=== PATIENT | male | born 1960 | race Caucasian/White ===

== ENCOUNTER 2016-08-02 19:44 | Inpatient (IN) | payer OTHER ==
[2016-08-02 20:55] VITALS: BMI 28.6
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
[2016-08-02] MEDS ORDERED: MAG HYDROX/AL HYDROX/SIMETH 30 ML UNIT-DOSE CUP PO PRN (21:37)
[2016-08-02] MEDS ORDERED: chlordiazePOXIDE HCL 25 MG CAPSULE PO PRN (21:37)
[2016-08-02] MEDS ORDERED: ACETAMINOPHEN 325 MG TABLET (FP) PO PRN (21:37)
[2016-08-02] MEDS ORDERED: guaiFENesin/D-METHORPHAN HB 10 ML UNIT-DOSE CUPS PO PRN (21:37)
[2016-08-02] MEDS ORDERED: P-EPHED 60MG/TRIPROLIDI 2.5MG TABLET PO PRN (21:37)
[2016-08-02] MEDS ORDERED: IBUPROFEN 400 MG TABLET (FP) PO PRN (21:37)
[2016-08-02] MEDS ORDERED: LOPERAMIDE HCL 2 MG CAPSULE PO PRN (21:37)
[2016-08-02] MEDS ORDERED: NICOTINE POLACRILEX 2 MG GUM BC PRN (21:37)
[2016-08-02] MEDS ORDERED: MAGNESIUM HYDROX 2400MG/30ML ORAL SUSPENSION 30 ML CUP PO PRN (21:37)
[2016-08-02] MEDS ORDERED: MENTHOL/PHENOL 1 EACH UD MM PRN (21:37)
[2016-08-02] MEDS ORDERED: MAGNESIUM CITRATE 300 ML BOTTLE PO PRN (21:37)
[2016-08-02] MEDS ORDERED: diphenhydrAMINE HCL 50 MG CAPSULE PO PRN (21:37)
[2016-08-02] MEDS: chlordiazePOXIDE HCL 25 MG CAPSULE PO SCH (22:54)
[2016-08-02] MEDS: THIAMINE HCL 100 MG TABLET (FP) PO SCH (22:55)
[2016-08-02] MEDS: ATORVASTATIN CA 20 MG TABLET (FP) PO SCH (22:55)
[2016-08-02] MEDS: amLODIPine BESYLATE 10 MG TABLET (FP) PO SCH (22:55)
[2016-08-02 23:01] LABS: URINE APPEARANCE CLEAR; URINE BILIRUBIN NEGATIVE (NEGATIVE); URINE COLOR YELLOW; URINE GLUCOSE (UA) NEGATIVE (NEGATIVE); URINE KETONE NEGATIVE (NEGATIVE); URINE LEUK ESTERASE NEGATIVE (NEGATIVE); URINE NITRITE NEGATIVE (NEGATIVE); URINE UROBILINOGEN NEGATIVE E.U./dl (0.2-1.0)
[2016-08-02 23:10] LABS: URINE BLOOD 1+ (NEGATIVE); URINE PROTEIN 1+ (NEGATIVE)
[2016-08-02 23:20] LABS: URINE MUCUS RARE; URINE RBC 7 /hpf (0-3); URINE WBC 1 /hpf (3-5)
[2016-08-03] MEDS: chlordiazePOXIDE HCL 25 MG CAPSULE PO SCH ×4 (05:37→22:22)
[2016-08-03] MEDS: METHADONE HCL 10 MG TABLET PO SCH (09:24)
[2016-08-03] MEDS: amLODIPine BESYLATE 10 MG TABLET (FP) PO SCH (09:25)
[2016-08-03] MEDS: HYDROCHLOROTHIAZIDE 25 MG TABLET (FP) PO SCH (09:25)
[2016-08-03] MEDS: PRENATAL VITAMINS W/ FOLIC ACID TABLET (FP) PO SCH (09:25)
[2016-08-03 10:27] LABS: MCH 33.3 pg (25.7-33.7); MCHC 33.5 g/dl (32.0-35.9); MEAN CELL VOLUME 99.5 fl (80-96); MEAN PLT VOLUME 10.4 fl (7.5-11.1); PLATELET COUNT 125 K/MM3 (134-434); RDW 13.9 % (11.9-15.9); WHITE BLOOD COUNT 6.6 K/mm3 (4.0-10.0)
[2016-08-03] MEDS: CALCIUM 250MG/VIT-D 125 UNITS 1 COMBO TABLET PO SCH (10:39)
[2016-08-03] MEDS: NICOTINE 14 MG/24 HOURS TOPICAL PATCH TD SCH (10:40)
[2016-08-03 10:42] LABS: ALBUMIN 3.8 g/dl (3.4-5.0); ANION GAP 7 (8-16); CALCIUM 8.6 mg/dL (8.5-10.1); CO2 35 mmol/L (21-32); GLUCOSE,RANDOM 80 mg/dL (74-106)
[2016-08-03 10:47] LABS: ALK PHOS 150 U/L (45-117); BILIRUBIN,TOTAL 1.2 mg/dL (0.2-1.0); CREATININE 0.7 mg/dL (0.7-1.3); SGOT/AST 93 U/L (15-37); SGPT/ALT 109 U/L (12-78); TOT PROT 7.1 g/dl (6.4-8.2)
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
[2016-08-03] MEDS: LISINOPRIL 20 MG TABLET (FP) PO SCH (13:45)
--- NOTE | 2016-08-03 14:36 | PN ---
S CIWA - CIWA Score Nausea/Vomitin Muscle Tremors: 4-Moderate,w/Arms Extend Anxiety: 4-Mod. Anxious/Guarded Agitation: 4-Moderately Restless Paroxysmal Sweats: 3 Orientation: 4Disoriented Place/Person Tacttile Disturbances: 2-Mild Itch/Numbness/Burn Auditory Disturbances: 0-None Visual Disturbances: 0-None Headache: 0-None Present CIWA-Ar Total Score: 23 S Progress Note (SOAP) Subjective: Tremors, Sweating, Runny Nose. Objective: PT. A & O X 1 (DISORIENTED ABOUT DAY/DATE AND ABOUT LOCATION). PT. OBSERVED AMBULATING ON UNIT. 08/03/16 14:34 Vital Signs Temperature 97.1 F L 08/03/16 14:20 Pulse Rate 93 H 08/03/16 14:20 Respiratory Rate 20 08/03/16 14:20 Blood Pressure 135/72 08/03/16 14:20 O2 Sat by Pulse Oximetry (%) Laboratory Last Values WBC 6.6 K/mm3 (4.0-10.0) 08/03/16 07:30 RBC 4.39 M/mm3 (4.00-5.60) 08/03/16 07:30 Hgb 14.6 GM/dL (11.7-16.9) 08/03/16 07:30 Hct 43.7 % (35.4-49) 08/03/16 07:30 MCV 99.5 fl (80-96) H 08/03/16 07:30 MCHC 33.5 g/dl (32.0-35.9) 08/03/16 07:30 RDW 13.9 % (11.9-15.9) 08/03/16 07:30 Plt Count 125 K/MM3 (134-434) L 08/03/16 07:30 MPV 10.4 fl (7.5-11.1) 08/03/16 07:30 Sodium 141 mmol/L (136-145) 08/03/16 07:30 Potassium 3.6 mmol/L (3.5-5.1) 08/03/16 07:30 Chloride 99 mmol/L (98-107) 08/03/16 07:30 Carbon Dioxide 35 mmol/L (21-32) H 08/03/16 07:30 Anion Gap 7 (8-16) L 08/03/16 07:30 BUN 14 mg/dL (7-18) 08/03/16 07:30 Creatinine 0.7 mg/dL (0.7-1.3) 08/03/16 07:30 Creat Clearance w eGFR > 60 (>60) 08/03/16 07:30 Random Glucose 80 mg/dL (74-106) 08/03/16 07:30 Calcium 8.6 mg/dL (8.5-10.1) 08/03/16 07:30 Total Bilirubin 1.2 mg/dL (0.2-1.0) H 08/03/16 07:30 AST 93 U/L (15-37) H 08/03/16 07:30 ALT 109 U/L (12-78) H 08/03/16 07:30 Alkaline Phosphatase 150 U/L (45-117) H 08/03/16 07:30 Total Protein 7.1 g/dl (6.4-8.2) 08/03/16 07:30 Albumin 3.8 g/dl (3.4-5.0) 08/03/16 07:30 Urine Color Yellow 08/02/16 21:51 Urine Appearance Clear 08/02/16 21:51 Urine pH 7.0 (5.0-8.0) 08/02/16 21:51 Ur Specific [place] 1.016 (1.001-1.035) 08/02/16 21:51 Urine Protein 1+ (NEGATIVE) H 08/02/16 21:51 Urine Glucose (UA) Negative (NEGATIVE) 08/02/16 21:51 Urine Ketones Negative (NEGATIVE) 08/02/16 21:51 Urine Blood 1+ (NEGATIVE) H 08/02/16 21:51 Urine Nitrite Negative (NEGATIVE) 08/02/16 21:51 Urine Bilirubin Negative (NEGATIVE) 08/02/16 21:51 Urine Urobilinogen Negative E.U./dl (0.2-1.0) 08/02/16 21:51 Ur Leukocyte Esterase Negative (NEGATIVE) 08/02/16 21:51 Urine RBC 7 /hpf (0-3) 08/02/16 21:51 Urine WBC 1 /hpf (3-5) 08/02/16 21:51 Urine Mucus Rare 08/02/16 21:51 RPR Titer Nonreactive (NONREACTIVE) 08/03/16 07:30 LABS NOTED. Assessment: 08/03/16 14:36 WITHDRAWAL SYMPTOMS. Plan: CONTINUE DETOX. PT. ADVISED TO FOLLOW-UP WITH TAX AUDITOR / REHAB MEDICAL PROVIDER AFTER DISCHARGE FROM DETOX FOR GENERAL MEDICAL ASSESSMENT AND FOR ABNORMAL LAB VALUES.
[2016-08-03] MEDS: ATORVASTATIN CA 20 MG TABLET (FP) PO SCH (22:22)
[2016-08-03] MEDS: THIAMINE HCL 100 MG TABLET (FP) PO SCH (22:22)
[2016-08-04] MEDS: METHADONE HCL 10 MG TABLET PO SCH (05:29)
[2016-08-04] MEDS: chlordiazePOXIDE HCL 25 MG CAPSULE PO SCH ×3 (05:30→17:57)
[2016-08-04] MEDS: CALCIUM 250MG/VIT-D 125 UNITS 1 COMBO TABLET PO SCH (10:20)
[2016-08-04] MEDS: NICOTINE 14 MG/24 HOURS TOPICAL PATCH TD SCH (10:20)
[2016-08-04] MEDS: amLODIPine BESYLATE 10 MG TABLET (FP) PO SCH (10:20)
[2016-08-04] MEDS: HYDROCHLOROTHIAZIDE 25 MG TABLET (FP) PO SCH (10:20)
[2016-08-04] MEDS: LISINOPRIL 20 MG TABLET (FP) PO SCH (10:20)
[2016-08-04] MEDS: PRENATAL VITAMINS W/ FOLIC ACID TABLET (FP) PO SCH (10:20)
--- NOTE | 2016-08-04 14:28 | PN ---
[facility] CIWA - CIWA Score Nausea/Vomitin-Mild Nausea/No Vomiting Muscle Tremors: 4-Moderate,w/Arms Extend Anxiety: 4-Mod. Anxious/Guarded Agitation: 4-Moderately Restless Paroxysmal Sweats: 3 Orientation: 0-Oriented Tacttile Disturbances: 0-None Auditory Disturbances: 2-Mild Harshness/Frighten Visual Disturbances: 1-Very Mild Sensitivity Headache: 0-None Present CIWA-Ar Total Score: 19 S Progress Note (SOAP) Subjective: Fatigue, Tremors, Anxious. Objective: PT. A & O X 3, OBSERVED AMBULATING ON UNIT. 08/04/16 14:26 Vital Signs Temperature 97.5 F L 08/04/16 13:10 Pulse Rate 61 08/04/16 13:10 Respiratory Rate 18 08/04/16 13:10 Blood Pressure 147/83 08/04/16 13:10 O2 Sat by Pulse Oximetry (%) Laboratory Last Values WBC 6.6 K/mm3 (4.0-10.0) 08/03/16 07:30 RBC 4.39 M/mm3 (4.00-5.60) 08/03/16 07:30 Hgb 14.6 GM/dL (11.7-16.9) 08/03/16 07:30 Hct 43.7 % (35.4-49) 08/03/16 07:30 MCV 99.5 fl (80-96) H 08/03/16 07:30 MCHC 33.5 g/dl (32.0-35.9) 08/03/16 07:30 RDW 13.9 % (11.9-15.9) 08/03/16 07:30 Plt Count 125 K/MM3 (134-434) L 08/03/16 07:30 MPV 10.4 fl (7.5-11.1) 08/03/16 07:30 Sodium 141 mmol/L (136-145) 08/03/16 07:30 Potassium 3.6 mmol/L (3.5-5.1) 08/03/16 07:30 Chloride 99 mmol/L (98-107) 08/03/16 07:30 Carbon Dioxide 35 mmol/L (21-32) H 08/03/16 07:30 Anion Gap 7 (8-16) L 08/03/16 07:30 BUN 14 mg/dL (7-18) 08/03/16 07:30 Creatinine 0.7 mg/dL (0.7-1.3) 08/03/16 07:30 Creat Clearance w eGFR > 60 (>60) 08/03/16 07:30 Random Glucose 80 mg/dL (74-106) 08/03/16 07:30 Calcium 8.6 mg/dL (8.5-10.1) 08/03/16 07:30 Total Bilirubin 1.2 mg/dL (0.2-1.0) H 08/03/16 07:30 AST 93 U/L (15-37) H 08/03/16 07:30 ALT 109 U/L (12-78) H 08/03/16 07:30 Alkaline Phosphatase 150 U/L (45-117) H 08/03/16 07:30 Total Protein 7.1 g/dl (6.4-8.2) 08/03/16 07:30 Albumin 3.8 g/dl (3.4-5.0) 08/03/16 07:30 Urine Color Yellow 08/02/16 21:51 Urine Appearance Clear 08/02/16 21:51 Urine pH 7.0 (5.0-8.0) 08/02/16 21:51 Ur Specific [place] 1.016 (1.001-1.035) 08/02/16 21:51 Urine Protein 1+ (NEGATIVE) H 08/02/16 21:51 Urine Glucose (UA) Negative (NEGATIVE) 08/02/16 21:51 Urine Ketones Negative (NEGATIVE) 08/02/16 21:51 Urine Blood 1+ (NEGATIVE) H 08/02/16 21:51 Urine Nitrite Negative (NEGATIVE) 08/02/16 21:51 Urine Bilirubin Negative (NEGATIVE) 08/02/16 21:51 Urine Urobilinogen Negative E.U./dl (0.2-1.0) 08/02/16 21:51 Ur Leukocyte Esterase Negative (NEGATIVE) 08/02/16 21:51 Urine RBC 7 /hpf (0-3) 08/02/16 21:51 Urine WBC 1 /hpf (3-5) 08/02/16 21:51 Urine Mucus Rare 08/02/16 21:51 RPR Titer Nonreactive (NONREACTIVE) 08/03/16 07:30 LABS NOTED. Assessment: 08/04/16 14:27 WITHDRAWAL SYMPTOMS. Plan: CONTINUE DETOX. ADVISED PATIENT TO FOLLOW-UP WITH FORMULATION CHEMIST / REHAB MEDICAL PROVIDER AFTER DISCHARGE FROM DETOX FOR GENERAL MEDICAL ASSESSMENT AND FOR ABNORMAL LAB VALUES.
[2016-08-04] MEDS: THIAMINE HCL 100 MG TABLET (FP) PO SCH (22:48)
[2016-08-04] MEDS: ATORVASTATIN CA 20 MG TABLET (FP) PO SCH (22:49)
[2016-08-04] MEDS: chlordiazePOXIDE 5 MG CAPSULE PO SCH (22:51)
[2016-08-05] MEDS: METHADONE HCL 10 MG TABLET PO SCH (05:20)
[2016-08-05] MEDS: chlordiazePOXIDE 5 MG CAPSULE PO SCH ×3 (05:20→17:36)
[2016-08-05] MEDS: LISINOPRIL 20 MG TABLET (FP) PO SCH (10:23)
[2016-08-05] MEDS: HYDROCHLOROTHIAZIDE 25 MG TABLET (FP) PO SCH (10:23)
[2016-08-05] MEDS: CALCIUM 250MG/VIT-D 125 UNITS 1 COMBO TABLET PO SCH (10:23)
[2016-08-05] MEDS: NICOTINE 14 MG/24 HOURS TOPICAL PATCH TD SCH (10:23)
[2016-08-05] MEDS: amLODIPine BESYLATE 10 MG TABLET (FP) PO SCH (10:23)
[2016-08-05] MEDS: PRENATAL VITAMINS W/ FOLIC ACID TABLET (FP) PO SCH (10:23)
--- NOTE | 2016-08-05 10:34 | PN ---
S Progress Note (SOAP) Subjective: Interrupted Sleep, Irritable, Anxious, Fatigued, Minor Body Aches Objective: 08/05/16 10:28 Vital Signs Temperature 97.0 F L 08/05/16 10:01 Pulse Rate 75 08/05/16 10:01 Respiratory Rate 16 08/05/16 10:01 Blood Pressure 136/86 08/05/16 10:01 O2 Sat by Pulse Oximetry (%) Laboratory Last Values WBC 6.6 K/mm3 (4.0-10.0) 08/03/16 07:30 RBC 4.39 M/mm3 (4.00-5.60) 08/03/16 07:30 Hgb 14.6 GM/dL (11.7-16.9) 08/03/16 07:30 Hct 43.7 % (35.4-49) 08/03/16 07:30 MCV 99.5 fl (80-96) H 08/03/16 07:30 MCHC 33.5 g/dl (32.0-35.9) 08/03/16 07:30 RDW 13.9 % (11.9-15.9) 08/03/16 07:30 Plt Count 125 K/MM3 (134-434) L 08/03/16 07:30 MPV 10.4 fl (7.5-11.1) 08/03/16 07:30 Sodium 141 mmol/L (136-145) 08/03/16 07:30 Potassium 3.6 mmol/L (3.5-5.1) 08/03/16 07:30 Chloride 99 mmol/L (98-107) 08/03/16 07:30 Carbon Dioxide 35 mmol/L (21-32) H 08/03/16 07:30 Anion Gap 7 (8-16) L 08/03/16 07:30 BUN 14 mg/dL (7-18) 08/03/16 07:30 Creatinine 0.7 mg/dL (0.7-1.3) 08/03/16 07:30 Creat Clearance w eGFR > 60 (>60) 08/03/16 07:30 Random Glucose 80 mg/dL (74-106) 08/03/16 07:30 Calcium 8.6 mg/dL (8.5-10.1) 08/03/16 07:30 Total Bilirubin 1.2 mg/dL (0.2-1.0) H 08/03/16 07:30 AST 93 U/L (15-37) H 08/03/16 07:30 ALT 109 U/L (12-78) H 08/03/16 07:30 Alkaline Phosphatase 150 U/L (45-117) H 08/03/16 07:30 Total Protein 7.1 g/dl (6.4-8.2) 08/03/16 07:30 Albumin 3.8 g/dl (3.4-5.0) 08/03/16 07:30 Urine Color Yellow 08/02/16 21:51 Urine Appearance Clear 08/02/16 21:51 Urine pH 7.0 (5.0-8.0) 08/02/16 21:51 Ur Specific [place] 1.016 (1.001-1.035) 08/02/16 21:51 Urine Protein 1+ (NEGATIVE) H 08/02/16 21:51 Urine Glucose (UA) Negative (NEGATIVE) 08/02/16 21:51 Urine Ketones Negative (NEGATIVE) 08/02/16 21:51 Urine Blood 1+ (NEGATIVE) H 08/02/16 21:51 Urine Nitrite Negative (NEGATIVE) 08/02/16 21:51 Urine Bilirubin Negative (NEGATIVE) 08/02/16 21:51 Urine Urobilinogen Negative E.U./dl (0.2-1.0) 08/02/16 21:51 Ur Leukocyte Esterase Negative (NEGATIVE) 08/02/16 21:51 Urine RBC 7 /hpf (0-3) 08/02/16 21:51 Urine WBC 1 /hpf (3-5) 08/02/16 21:51 Urine Mucus Rare 08/02/16 21:51 RPR Titer Nonreactive (NONREACTIVE) 08/03/16 07:30 Vitals and Labs noted Assessment: Withdrawal Symptoms Plan: Continue Detox
[2016-08-05] MEDS: ATORVASTATIN CA 20 MG TABLET (FP) PO SCH (22:23)
[2016-08-05] MEDS: THIAMINE HCL 100 MG TABLET (FP) PO SCH (22:23)
[2016-08-05] MEDS: chlordiazePOXIDE HCL 10 MG CAPSULE PO SCH (22:23)
[2016-08-05] MEDS ORDERED: cloNIDine HCL 0.1 MG TABLET PO ONE (23:58)
[2016-08-06] MEDS: chlordiazePOXIDE HCL 10 MG CAPSULE PO SCH ×2 (05:36→10:47)
[2016-08-06] MEDS: METHADONE HCL 10 MG TABLET PO SCH (05:36)
[2016-08-06 09:38] VITALS: BP 127/82; PULSE 97; TEMP 96.5
--- NOTE | 2016-08-06 10:13 | DS ---
[facility] Detox Discharge Summary Admission Date: 08/02/16 Discharge Date: 08/06/16 - History Present History: Alcohol Dependence, MMTP Pertinent Past History: Hyperlipidemia HTN - Physical Exam Results Vital Signs: Vital Signs Temperature 96.5 F L 08/06/16 09:37 Pulse Rate 97 H 08/06/16 09:37 Respiratory Rate 18 08/06/16 09:37 Blood Pressure 127/82 08/06/16 09:37 O2 Sat by Pulse Oximetry (%) Pertinent Admission Physical Exam Findings: Withdrawal sx. Laboratory Last Values WBC 6.6 K/mm3 (4.0-10.0) 08/03/16 07:30 RBC 4.39 M/mm3 (4.00-5.60) 08/03/16 07:30 Hgb 14.6 GM/dL (11.7-16.9) 08/03/16 07:30 Hct 43.7 % (35.4-49) 08/03/16 07:30 MCV 99.5 fl (80-96) H 08/03/16 07:30 MCHC 33.5 g/dl (32.0-35.9) 08/03/16 07:30 RDW 13.9 % (11.9-15.9) 08/03/16 07:30 Plt Count 125 K/MM3 (134-434) L 08/03/16 07:30 MPV 10.4 fl (7.5-11.1) 08/03/16 07:30 Sodium 141 mmol/L (136-145) 08/03/16 07:30 Potassium 3.6 mmol/L (3.5-5.1) 08/03/16 07:30 Chloride 99 mmol/L (98-107) 08/03/16 07:30 Carbon Dioxide 35 mmol/L (21-32) H 08/03/16 07:30 Anion Gap 7 (8-16) L 08/03/16 07:30 BUN 14 mg/dL (7-18) 08/03/16 07:30 Creatinine 0.7 mg/dL (0.7-1.3) 08/03/16 07:30 Creat Clearance w eGFR > 60 (>60) 08/03/16 07:30 Random Glucose 80 mg/dL (74-106) 08/03/16 07:30 Calcium 8.6 mg/dL (8.5-10.1) 08/03/16 07:30 Total Bilirubin 1.2 mg/dL (0.2-1.0) H 08/03/16 07:30 AST 93 U/L (15-37) H 08/03/16 07:30 ALT 109 U/L (12-78) H 08/03/16 07:30 Alkaline Phosphatase 150 U/L (45-117) H 08/03/16 07:30 Total Protein 7.1 g/dl (6.4-8.2) 08/03/16 07:30 Albumin 3.8 g/dl (3.4-5.0) 08/03/16 07:30 Urine Color Yellow 08/02/16 21:51 Urine Appearance Clear 08/02/16 21:51 Urine pH 7.0 (5.0-8.0) 08/02/16 21:51 Ur Specific [place] 1.016 (1.001-1.035) 08/02/16 21:51 Urine Protein 1+ (NEGATIVE) H 08/02/16 21:51 Urine Glucose (UA) Negative (NEGATIVE) 08/02/16 21:51 Urine Ketones Negative (NEGATIVE) 08/02/16 21:51 Urine Blood 1+ (NEGATIVE) H 08/02/16 21:51 Urine Nitrite Negative (NEGATIVE) 08/02/16 21:51 Urine Bilirubin Negative (NEGATIVE) 08/02/16 21:51 Urine Urobilinogen Negative E.U./dl (0.2-1.0) 08/02/16 21:51 Ur Leukocyte Esterase Negative (NEGATIVE) 08/02/16 21:51 Urine RBC 7 /hpf (0-3) 08/02/16 21:51 Urine WBC 1 /hpf (3-5) 08/02/16 21:51 Urine Mucus Rare 08/02/16 21:51 RPR Titer Nonreactive (NONREACTIVE) 08/03/16 07:30 labs noted - Treatment Hospital Course: Detox Protocol Followed, Detoxed Safely, Responded well, Discharged Condition Good, Rehab Referral Accepted Patient has Accepted a Rehab Referral to: Return to [facility] & attend 12 steps meetings - Medication Discharge Medications: Ambulatory Orders Amlodipine/Atorvastatin [Amlodipine-Atorvast 10-40 mg] 1 each PO DAILY 08/02/16 Atorvastatin Ca [Lipitor] 40 mg PO DAILY 08/02/16 Benazepril HCl 40 mg PO DAILY 08/02/16 Calcium Carbonate/Vitamin D3 [Calcium 250+D Tablet] 1 each PO DAILY 08/02/16 Hydrochlorothiazide [Hctz -] 25 mg PO DAILY 08/02/16 Methadone HCl [Dolophine HCl] 5 mg PO DAILY 08/02/16 - Diagnosis (1) Alcohol dependence with uncomplicated withdrawal Current Visit: Yes Status: Acute (2) Nicotine dependence Current Visit: Yes Status: Acute Qualifiers: Nicotine product type: cigarettes Substance use status: in withdrawal Qualified Code(s): F17.213 - Nicotine dependence, cigarettes, with withdrawal (3) Opioid dependence on agonist therapy Current Visit: Yes Status: Acute (4) Substance induced mood disorder Current Visit: Yes Status: Acute (5) [place] (hard of hearing) Current Visit: Yes Status: Chronic Qualifiers: 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
[2016-08-06] MEDS: amLODIPine BESYLATE 10 MG TABLET (FP) PO SCH (10:47)
[2016-08-06] MEDS: CALCIUM 250MG/VIT-D 125 UNITS 1 COMBO TABLET PO SCH (10:47)
[2016-08-06] MEDS: NICOTINE 14 MG/24 HOURS TOPICAL PATCH TD SCH (10:47)
[2016-08-06] MEDS: LISINOPRIL 20 MG TABLET (FP) PO SCH (10:47)
[2016-08-06] MEDS: HYDROCHLOROTHIAZIDE 25 MG TABLET (FP) PO SCH (10:47)
[2016-08-06] MEDS: PRENATAL VITAMINS W/ FOLIC ACID TABLET (FP) PO SCH (10:47)
--- NOTE | 2016-08-07 16:59 | EKG ---
Test Reason : Blood Pressure : / mmHG Vent. Rate : 073 BPM Atrial Rate : 073 BPM P-R Int : 156 ms QRS Dur : 114 ms QT Int : 428 ms P-R-T Axes : 043 010 069 degrees QTc Int : 471 ms NORMAL SINUS RHYTHM POSSIBLE LEFT ATRIAL ENLARGEMENT LEFT VENTRICULAR HYPERTROPHY NONSPECIFIC ST AND T WAVE ABNORMALITY PROLONGED QT ABNORMAL ECG NO PREVIOUS ECGS AVAILABLE Confirmed by ANTONIO THOMAS MD ([id number]) on 08/07/2016 4:59:17 PM Referred By: Confirmed By:ANTONOI THOMAS MD
== END 2016-08-06 11:05 | disposition home or self-care (01) | DRG 773 ==
LOC: YASAS 19:44 → Y3N 21:27
PROVIDERS: ADMIT Internal Medicine Addiction Medicine; ATTEND Internal Medicine Addiction Medicine
PROC: HZ2ZZZZ Detoxification Services for Substance Abuse Treatment (ICD-10-PCS; principal; 2016-08-06)
DX: F11.20 Opioid dependence, uncomplicated (principal); F10.230 Alcohol dependence with withdrawal, uncomplicated; F17.213 Nicotine dependence, cigarettes, with withdrawal; F19.24 Other psychoactive substance dependence with psychoactive substance-induced mood disorder; F34.1 Dysthymic disorder; I10 Essential (primary) hypertension; E78.00 Pure hypercholesterolemia, unspecified; H90.71 Mixed conductive and sensorineural hearing loss, unilateral, right ear, with unrestricted hearing on the contralateral side; R76.11 Nonspecific reaction to tuberculin skin test without active tuberculosis; R26.2 Difficulty in walking, not elsewhere classified; Z98.41 Cataract extraction status, right eye; Z90.49 Acquired absence of other specified parts of digestive tract
CPT/HCPCS: 36415; 71020-TC; 80053; 81003; 81015; 85027; 86593; 93005; 93010

== ENCOUNTER 2016-12-10 15:00 | Inpatient (IN) | payer OTHER ==
[2016-12-10 18:54] VITALS: BMI 28.1
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
[2016-12-10] MEDS ORDERED: P-EPHED 60MG/TRIPROLIDI 2.5MG TABLET PO PRN (20:53)
[2016-12-10] MEDS ORDERED: guaiFENesin/D-METHORPHAN HB 10 ML UNIT-DOSE CUPS PO PRN (20:53)
[2016-12-10] MEDS ORDERED: ACETAMINOPHEN 325 MG TABLET (FP) PO PRN (20:53)
[2016-12-10] MEDS ORDERED: MAG HYDROX/AL HYDROX/SIMETH 30 ML UNIT-DOSE CUP PO PRN (20:53)
[2016-12-10] MEDS ORDERED: LOPERAMIDE HCL 2 MG CAPSULE PO PRN (20:53)
[2016-12-10] MEDS ORDERED: chlordiazePOXIDE HCL 25 MG CAPSULE PO ONE (20:53)
[2016-12-10] MEDS ORDERED: MENTHOL/PHENOL 1 EACH UD MM PRN (20:53)
[2016-12-10] MEDS ORDERED: MAGNESIUM CITRATE 300 ML BOTTLE PO PRN (20:53)
[2016-12-10] MEDS ORDERED: MAGNESIUM HYDROX 2400MG/30ML ORAL SUSPENSION 30 ML CUP PO PRN (20:53)
[2016-12-10] MEDS ORDERED: NICOTINE POLACRILEX 2 MG GUM BC PRN (20:53)
[2016-12-10] MEDS ORDERED: IBUPROFEN 400 MG TABLET (FP) PO PRN (20:53)
[2016-12-10] MEDS: THIAMINE HCL 100 MG TABLET (FP) PO SCH (23:57)
[2016-12-10] MEDS: chlordiazePOXIDE HCL 25 MG CAPSULE PO SCH (23:57)
[2016-12-11] MEDS: chlordiazePOXIDE HCL 25 MG CAPSULE PO SCH ×4 (05:01→22:13)
[2016-12-11] MEDS: amLODIPine BESYLATE 10 MG TABLET (FP) PO SCH (10:09)
[2016-12-11] MEDS: ATORVASTATIN CA 40 MG TABLET (FP) PO SCH (10:09)
[2016-12-11] MEDS: PRENATAL VITAMINS W/ FOLIC ACID TABLET (FP) PO SCH (10:09)
[2016-12-11] MEDS: HYDROCHLOROTHIAZIDE 25 MG TABLET (FP) PO SCH (10:09)
[2016-12-11] MEDS: NICOTINE 14 MG/24 HOURS TOPICAL PATCH TD SCH (10:11)
[2016-12-11 10:27] LABS: MCH 33.9 pg (25.7-33.7); MCHC 33.9 g/dl (32.0-35.9); MEAN CELL VOLUME 100.2 fl (80-96); MEAN PLT VOLUME 9.5 fl (7.5-11.1); PLATELET COUNT 243 K/MM3 (134-434); RDW 14.3 % (11.9-15.9); WHITE BLOOD COUNT 7.2 K/mm3 (4.0-10.0)
--- NOTE | 2016-12-11 10:41 | PN ---
[facility] CIWA - CIWA Score Nausea/Vomitin-No Nausea/No Vomiting Muscle Tremors: 4-Moderate,w/Arms Extend Anxiety: 3 Agitation: 3 Paroxysmal Sweats: 3 Orientation: 0-Oriented Tacttile Disturbances: 0-None Auditory Disturbances: 0-None Visual Disturbances: 0-None Headache: 0-None Present CIWA-Ar Total Score: 13 S Progress Note (SOAP) Subjective: back pain sweats shakes irritable interrupted sleep Objective: 12/11/16 10:38 Vital Signs Temperature 97.3 F L 12/11/16 10:34 Pulse Rate 60 12/11/16 10:34 Respiratory Rate 16 12/11/16 10:34 Blood Pressure 124/77 12/11/16 10:34 O2 Sat by Pulse Oximetry (%) labs pending awake/alert ambulating no acute distress Assessment: 12/11/16 10:38 withdrawal sx Plan: continue detox increase fluids cane ordered labs pending motrin 800mg tid
[2016-12-11 10:56] LABS: ALBUMIN 3.7 g/dl (3.4-5.0); ALK PHOS 104 U/L (45-117); ANION GAP 7 (8-16); BILIRUBIN,TOTAL 0.8 mg/dL (0.2-1.0); CALCIUM 9.1 mg/dL (8.5-10.1); CO2 34 mmol/L (21-32); CREATININE 0.8 mg/dL (0.7-1.3); GLUCOSE,RANDOM 81 mg/dL (74-106); SGOT/AST 15 U/L (15-37); SGPT/ALT 20 U/L (12-78)
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
--- NOTE | 2016-12-11 21:55 | EKG ---
Test Reason : Blood Pressure : / mmHG Vent. Rate : 051 BPM Atrial Rate : 051 BPM P-R Int : 148 ms QRS Dur : 106 ms QT Int : 452 ms P-R-T Axes : 044 014 066 degrees QTc Int : 416 ms SINUS BRADYCARDIA Q WAVES IN I AND aVL POSSIBILITY OF HIGH LATERAL VT OF INDETERMINATE CANNOT BE EXCLUDED WHEN COMPARED WITH ECG OF 02-AUG-2016 ST SEGMENTS IN 1 aVL ARE NEAR ISOELECTRIC REPEAT EKG IF CLINICALLY INDICATED Confirmed by MARIANN YUAN MD ([id number]) on 12/11/2016 9:55:47 PM Referred By: Confirmed By:MARIANN YUAN MD
[2016-12-11] MEDS: THIAMINE HCL 100 MG TABLET (FP) PO SCH (22:13)
[2016-12-12] MEDS: chlordiazePOXIDE HCL 25 MG CAPSULE PO PRN (01:08)
[2016-12-12] MEDS: diphenhydrAMINE HCL 50 MG CAPSULE PO PRN ×2 (01:09→22:23)
[2016-12-12] MEDS: IBUPROFEN 400 MG TABLET (FP) PO PRN ×2 (01:09→22:22)
[2016-12-12] MEDS: chlordiazePOXIDE HCL 25 MG CAPSULE PO SCH ×3 (05:55→17:32)
--- NOTE | 2016-12-12 09:28 | PN ---
[facility] CIWA - CIWA Score Nausea/Vomitin-No Nausea/No Vomiting Muscle Tremors: 2 Anxiety: 2 Agitation: 3 Paroxysmal Sweats: 3 Orientation: 0-Oriented Tacttile Disturbances: 0-None Auditory Disturbances: 0-None Visual Disturbances: 0-None Headache: 1-Very Mild CIWA-Ar Total Score: 11 S Progress Note (SOAP) Subjective: headache sweats interrupted sleep body ache Objective: 12/12/16 09:47 Vital Signs Temperature 97.8 F 12/12/16 06:27 Pulse Rate 65 12/12/16 06:27 Respiratory Rate 18 12/12/16 06:27 Blood Pressure 142/79 12/12/16 06:27 O2 Sat by Pulse Oximetry (%) Laboratory Tests 12/11/16 12/11/16 12/11/16 06:30 06:30 06:30 WBC 7.2 RBC 4.18 Hgb 14.2 Hct 41.9 MCV 100.2 H MCH 33.9 H MCHC 33.9 RDW 14.3 Plt Count 243 D MPV 9.5 Sodium 141 Potassium 4.1 Chloride 100 Carbon Dioxide 34 H Anion Gap 7 L BUN 17 D Creatinine 0.8 Creat Clearance w eGFR > 60 Random Glucose 81 Calcium 9.1 Total Bilirubin 0.8 D AST 15 D ALT 20 D Alkaline Phosphatase 104 D Total Protein 7.0 Albumin 3.7 RPR Titer Nonreactive u/a result pending awake/alert ambulating with cane safely no acute distress Assessment: 12/12/16 09:49 withdrawal sx Plan: continue detox increase fluids labs pending
[2016-12-12] MEDS: PRENATAL VITAMINS W/ FOLIC ACID TABLET (FP) PO SCH (10:09)
[2016-12-12] MEDS: NICOTINE 14 MG/24 HOURS TOPICAL PATCH TD SCH (10:10)
[2016-12-12] MEDS: amLODIPine BESYLATE 10 MG TABLET (FP) PO SCH (10:10)
[2016-12-12] MEDS: ATORVASTATIN CA 40 MG TABLET (FP) PO SCH (10:10)
[2016-12-12] MEDS: HYDROCHLOROTHIAZIDE 25 MG TABLET (FP) PO SCH (10:10)
[2016-12-12] MEDS: hydrOXYzine PAMOATE 50 MG CAPSULE (FP) PO PRN ×2 (10:35→17:32)
[2016-12-12] MEDS ORDERED: CYCLOBENZAPRINE HCL 10 MG TABLET (FP) PO ONE (10:55)
[2016-12-12 13:57] LABS: URINE APPEARANCE CLEAR; URINE BILIRUBIN NEGATIVE (NEGATIVE); URINE BLOOD 2+ (NEGATIVE); URINE COLOR YELLOW; URINE GLUCOSE (UA) NEGATIVE (NEGATIVE); URINE KETONE NEGATIVE (NEGATIVE); URINE LEUK ESTERASE NEGATIVE (NEGATIVE); URINE NITRITE NEGATIVE (NEGATIVE); URINE PROTEIN NEGATIVE (NEGATIVE); URINE UROBILINOGEN NEGATIVE mg/dL (0.2-1.0)
[2016-12-12 14:41] LABS: URINE RBC 1 /hpf (0-3); URINE WBC <1 /hpf (3-5)
[2016-12-12] MEDS: CYCLOBENZAPRINE HCL 10 MG TABLET (FP) PO PRN (22:22)
[2016-12-12] MEDS: THIAMINE HCL 100 MG TABLET (FP) PO SCH (22:22)
[2016-12-12] MEDS: chlordiazePOXIDE 5 MG CAPSULE PO SCH (22:22)
[2016-12-13] MEDS: hydrOXYzine PAMOATE 50 MG CAPSULE (FP) PO PRN ×2 (01:05→17:47)
[2016-12-13] MEDS: chlordiazePOXIDE HCL 25 MG CAPSULE PO PRN (02:47)
[2016-12-13] MEDS: chlordiazePOXIDE 5 MG CAPSULE PO SCH ×4 (05:58→17:47)
--- NOTE | 2016-12-13 10:42 | PN ---
BHS Progress Note (SOAP) Subjective: Interrupted Sleep, Sweating, Diarrhea. Objective: PT. A & O X 3, OBSERVED AMBULATING ON UNIT WITH ASSISTANCE OF A CANE. NO ACUTE DISTRESS. 12/13/16 10:40 Vital Signs Temperature 97.9 F 12/13/16 07:04 Pulse Rate 75 12/13/16 07:04 Respiratory Rate 18 12/13/16 07:04 Blood Pressure 141/76 12/13/16 07:53 O2 Sat by Pulse Oximetry (%) Laboratory Tests 12/11/16 12/11/16 12/11/16 06:30 06:30 06:30 WBC 7.2 RBC 4.18 Hgb 14.2 Hct 41.9 MCV 100.2 H MCH 33.9 H MCHC 33.9 RDW 14.3 Plt Count 243 D MPV 9.5 Sodium 141 Potassium 4.1 Chloride 100 Carbon Dioxide 34 H Anion Gap 7 L BUN 17 D Creatinine 0.8 Creat Clearance w eGFR > 60 Random Glucose 81 Calcium 9.1 Total Bilirubin 0.8 D AST 15 D ALT 20 D Alkaline Phosphatase 104 D Total Protein 7.0 Albumin 3.7 Urine Color Urine Appearance Urine pH Ur Specific [place] Urine Protein Urine Glucose (UA) Urine Ketones Urine Blood Urine Nitrite Urine Bilirubin Urine Urobilinogen Ur Leukocyte Esterase Urine RBC Urine WBC RPR Titer Nonreactive 12/12/16 11:55 WBC RBC Hgb Hct MCV MCH MCHC RDW Plt Count MPV Sodium Potassium Chloride Carbon Dioxide Anion Gap BUN Creatinine Creat Clearance w eGFR Random Glucose Calcium Total Bilirubin AST ALT Alkaline Phosphatase Total Protein Albumin Urine Color Yellow Urine Appearance Clear Urine pH 5.0 D Ur Specific [place] 1.015 Urine Protein Negative Urine Glucose (UA) Negative Urine Ketones Negative Urine Blood 2+ H Urine Nitrite Negative Urine Bilirubin Negative Urine Urobilinogen Negative Ur Leukocyte Esterase Negative Urine RBC 1 Urine WBC <1 RPR Titer LABS NOTED. Assessment: 12/13/16 10:41 WITHDRAWAL SYMPTOMS. Plan: CONTINUE DETOX. AMMONIA LEVEL ORDERED BY DR. TIFFANIE MD, RESULT PENDING. REPEAT UA FOR ELEVATED ADMISSION URINE BLOOD RESULT.
[2016-12-13] MEDS: amLODIPine BESYLATE 10 MG TABLET (FP) PO SCH (11:40)
[2016-12-13] MEDS: ATORVASTATIN CA 40 MG TABLET (FP) PO SCH (11:40)
[2016-12-13] MEDS: PRENATAL VITAMINS W/ FOLIC ACID TABLET (FP) PO SCH (11:40)
[2016-12-13] MEDS: IBUPROFEN 400 MG TABLET (FP) PO PRN (11:40)
[2016-12-13] MEDS: NICOTINE 14 MG/24 HOURS TOPICAL PATCH TD SCH (11:41)
[2016-12-13] MEDS: HYDROCHLOROTHIAZIDE 25 MG TABLET (FP) PO SCH (11:47)
--- NOTE | 2016-12-13 13:27 | PN ---
[facility] Progress Note Note: Received report from Amber Torres RN that patient is currently a client at [facility]. This information not noted on admission. Daily dose (Liquid form): 7 mg; Last Day Medicated: 12/10/2016. Methadone, 5 mg PO ordered X 1 NOW and then at 6 AM daily after. 7 mg not available in tablet form; thus, 5 mg PO ordered (as per recommendation of Dr. Kane MD). Daryn Sung NP
[2016-12-13] MEDS: METHADONE HCL 5 MG TABLET PO SCH (14:11)
[2016-12-13] MEDS: LACTULOSE 20 GM/30 ML UDC (FOR ORAL USE ONLY) PO SCH ×2 (15:10→22:29)
--- NOTE | 2016-12-13 16:20 | PN ---
S Progress Note Note: Ammonia level: 61.82. Ordered Lactulose, 20 gm PO TID, FIRST DOSE NOW. Patient advised to follow-up with Primary Care Medical Provider (Dr. Conner, [place], [place] ) IMMEDIATELY after Discharge from Detox for further evaluation and treatment. Patient verbalized understanding of recommendation. Daryn Sung NP
[2016-12-13 16:59] LABS: URINE APPEARANCE CLEAR; URINE BILIRUBIN NEGATIVE (NEGATIVE); URINE BLOOD NEGATIVE (NEGATIVE); URINE COLOR YELLOW; URINE GLUCOSE (UA) NEGATIVE (NEGATIVE); URINE KETONE NEGATIVE (NEGATIVE); URINE LEUK ESTERASE NEGATIVE (NEGATIVE); URINE NITRITE NEGATIVE (NEGATIVE); URINE PROTEIN NEGATIVE (NEGATIVE); URINE UROBILINOGEN NEGATIVE mg/dL (0.2-1.0)
[2016-12-13] MEDS: chlordiazePOXIDE HCL 10 MG CAPSULE PO SCH (22:29)
[2016-12-13] MEDS: CYCLOBENZAPRINE HCL 10 MG TABLET (FP) PO PRN (22:29)
[2016-12-13] MEDS: THIAMINE HCL 100 MG TABLET (FP) PO SCH (22:29)
[2016-12-13] MEDS: diphenhydrAMINE HCL 50 MG CAPSULE PO PRN (22:30)
[2016-12-14] MEDS: chlordiazePOXIDE HCL 10 MG CAPSULE PO SCH ×2 (05:44→11:28)
[2016-12-14] MEDS: METHADONE HCL 5 MG TABLET PO SCH (05:45)
[2016-12-14] MEDS: LACTULOSE 20 GM/30 ML UDC (FOR ORAL USE ONLY) PO SCH ×3 (05:45→22:23)
[2016-12-14] MEDS ORDERED: ATORVASTATIN CA 20 MG TABLET (FP) ONE (09:51)
[2016-12-14] MEDS: NICOTINE 14 MG/24 HOURS TOPICAL PATCH TD SCH (11:27)
[2016-12-14] MEDS: HYDROCHLOROTHIAZIDE 25 MG TABLET (FP) PO SCH (11:27)
[2016-12-14] MEDS: ATORVASTATIN CA 40 MG TABLET (FP) PO SCH (11:27)
[2016-12-14] MEDS: amLODIPine BESYLATE 10 MG TABLET (FP) PO SCH (11:28)
[2016-12-14] MEDS: PRENATAL VITAMINS W/ FOLIC ACID TABLET (FP) PO SCH (11:28)
--- NOTE | 2016-12-14 12:03 | PN ---
BHS Progress Note (SOAP) Subjective: groggy sweats Objective: 12/14/16 11:59 Vital Signs Temperature 97.7 F 12/14/16 10:00 Pulse Rate 59 L 12/14/16 10:00 Respiratory Rate 20 12/14/16 10:00 Blood Pressure 116/68 12/14/16 10:00 O2 Sat by Pulse Oximetry (%) Laboratory Tests 12/11/16 12/11/16 12/11/16 06:30 06:30 06:30 WBC 7.2 RBC 4.18 Hgb 14.2 Hct 41.9 MCV 100.2 H MCH 33.9 H MCHC 33.9 RDW 14.3 Plt Count 243 D MPV 9.5 Sodium 141 Potassium 4.1 Chloride 100 Carbon Dioxide 34 H Anion Gap 7 L BUN 17 D Creatinine 0.8 Creat Clearance w eGFR > 60 Random Glucose 81 Calcium 9.1 Total Bilirubin 0.8 D AST 15 D ALT 20 D Alkaline Phosphatase 104 D Ammonia Total Protein 7.0 Albumin 3.7 Urine Color Urine Appearance Urine pH Ur Specific [place] Urine Protein Urine Glucose (UA) Urine Ketones Urine Blood Urine Nitrite Urine Bilirubin Urine Urobilinogen Ur Leukocyte Esterase Urine RBC Urine WBC RPR Titer Nonreactive 12/12/16 12/13/16 12/13/16 11:55 10:15 14:40 WBC RBC Hgb Hct MCV MCH MCHC RDW Plt Count MPV Sodium Potassium Chloride Carbon Dioxide Anion Gap BUN Creatinine Creat Clearance w eGFR Random Glucose Calcium Total Bilirubin AST ALT Alkaline Phosphatase Ammonia 61.82 H Total Protein Albumin Urine Color Yellow Yellow Urine Appearance Clear Clear Urine pH 5.0 D 5.0 Ur Specific [place] 1.015 1.025 Urine Protein Negative Negative Urine Glucose (UA) Negative Negative Urine Ketones Negative Negative Urine Blood 2+ H Negative Urine Nitrite Negative Negative Urine Bilirubin Negative Negative Urine Urobilinogen Negative Negative Ur Leukocyte Esterase Negative Negative Urine RBC 1 Urine WBC <1 RPR Titer repeated ammonia level pending awake/alert lying in bed no acute distress continue lactulose Assessment: 12/14/16 12:00 minimal withdrawal Plan: hold librium hold all sedating medication continue lactulose increase fluids will d/c pt pending on mental status and ammonia level.
[2016-12-14] MEDS: THIAMINE HCL 100 MG TABLET (FP) PO SCH (22:23)
[2016-12-15] MEDS: METHADONE HCL 5 MG TABLET PO SCH (05:30)
[2016-12-15] MEDS: LACTULOSE 20 GM/30 ML UDC (FOR ORAL USE ONLY) PO SCH (05:31)
[2016-12-15] MEDS: PRENATAL VITAMINS W/ FOLIC ACID TABLET (FP) PO SCH (10:34)
[2016-12-15] MEDS: NICOTINE 14 MG/24 HOURS TOPICAL PATCH TD SCH (10:35)
[2016-12-15] MEDS: HYDROCHLOROTHIAZIDE 25 MG TABLET (FP) PO SCH (10:35)
[2016-12-15] MEDS: amLODIPine BESYLATE 10 MG TABLET (FP) PO SCH (10:35)
[2016-12-15] MEDS: ATORVASTATIN CA 40 MG TABLET (FP) PO SCH (10:36)
--- NOTE | 2016-12-15 14:54 | PN ---
BHS Progress Note (SOAP) Subjective: Pt. was held because of diarrhea caused by lactulose given for hyperammonemia Objective: 12/15/16 14:52 Vital Signs - 8 hr 12/15/16 12/15/16 09:53 14:28 Temperature 98.1 F 98.4 F Pulse Rate 86 83 Respiratory 18 18 Rate Blood Pressure 139/89 120/74 Laboratory Results - last 24 hr 12/15/16 08:00 Ammonia 58.34 H ammonia level lower than before Assessment: 12/15/16 14:53 Hyperammonemia Plan: If stable we'll d/c in AM
[2016-12-15] MEDS: THIAMINE HCL 100 MG TABLET (FP) PO SCH (22:53)
[2016-12-16] MEDS: diphenhydrAMINE HCL 50 MG CAPSULE PO PRN (01:05)
[2016-12-16] MEDS: METHADONE HCL 5 MG TABLET PO SCH (05:28)
[2016-12-16 06:45] VITALS: TEMP 97.5
[2016-12-16] MEDS: ATORVASTATIN CA 40 MG TABLET (FP) PO SCH (10:33)
[2016-12-16] MEDS: amLODIPine BESYLATE 10 MG TABLET (FP) PO SCH (10:33)
[2016-12-16] MEDS: PRENATAL VITAMINS W/ FOLIC ACID TABLET (FP) PO SCH (10:33)
[2016-12-16] MEDS: HYDROCHLOROTHIAZIDE 25 MG TABLET (FP) PO SCH (10:33)
[2016-12-16] MEDS: NICOTINE 14 MG/24 HOURS TOPICAL PATCH TD SCH (10:34)
[2016-12-16 11:21] VITALS: BP 147/96; PULSE 72
--- NOTE | 2016-12-16 11:43 | DS ---
[facility] Detox Discharge Summary Admission Date: 12/10/16 Discharge Date: 12/16/16 - History Present History: Alcohol Dependence, MMTP Pertinent Past History: HTN Hyperlipidemia Alcohol liver disease - Physical Exam Results Vital Signs: Vital Signs Temperature 97.5 F L 12/16/16 10:00 Pulse Rate 72 12/16/16 10:00 Respiratory Rate 18 12/16/16 10:00 Blood Pressure 147/96 12/16/16 10:00 O2 Sat by Pulse Oximetry (%) Pertinent Admission Physical Exam Findings: Withdrawal sx. Laboratory Last Values WBC 7.2 K/mm3 (4.0-10.0) 12/11/16 06:30 RBC 4.18 M/mm3 (4.00-5.60) 12/11/16 06:30 Hgb 14.2 GM/dL (11.7-16.9) 12/11/16 06:30 Hct 41.9 % (35.4-49) 12/11/16 06:30 MCV 100.2 fl (80-96) H 12/11/16 06:30 MCH 33.9 pg (25.7-33.7) H 12/11/16 06:30 MCHC 33.9 g/dl (32.0-35.9) 12/11/16 06:30 RDW 14.3 % (11.9-15.9) 12/11/16 06:30 Plt Count 243 K/MM3 (134-434) D 12/11/16 06:30 MPV 9.5 fl (7.5-11.1) 12/11/16 06:30 Sodium 141 mmol/L (136-145) 12/11/16 06:30 Potassium 4.1 mmol/L (3.5-5.1) 12/11/16 06:30 Chloride 100 mmol/L (98-107) 12/11/16 06:30 Carbon Dioxide 34 mmol/L (21-32) H 12/11/16 06:30 Anion Gap 7 (8-16) L 12/11/16 06:30 BUN 17 mg/dL (7-18) D 12/11/16 06:30 Creatinine 0.8 mg/dL (0.7-1.3) 12/11/16 06:30 Creat Clearance w eGFR > 60 (>60) 12/11/16 06:30 Random Glucose 81 mg/dL (74-106) 12/11/16 06:30 Calcium 9.1 mg/dL (8.5-10.1) 12/11/16 06:30 Total Bilirubin 0.8 mg/dL (0.2-1.0) D 12/11/16 06:30 AST 15 U/L (15-37) D 12/11/16 06:30 ALT 20 U/L (12-78) D 12/11/16 06:30 Alkaline Phosphatase 104 U/L (45-117) D 12/11/16 06:30 Ammonia 58.34 umol/L (11-32) H 12/15/16 08:00 Total Protein 7.0 g/dl (6.4-8.2) 12/11/16 06:30 Albumin 3.7 g/dl (3.4-5.0) 12/11/16 06:30 Urine Color Yellow 12/13/16 14:40 Urine Appearance Clear 12/13/16 14:40 Urine pH 5.0 (5.0-8.0) 12/13/16 14:40 Ur Specific [place] 1.025 (1.005-1.025) 12/13/16 14:40 Urine Protein Negative (NEGATIVE) 12/13/16 14:40 Urine Glucose (UA) Negative (NEGATIVE) 12/13/16 14:40 Urine Ketones Negative (NEGATIVE) 12/13/16 14:40 Urine Blood Negative (NEGATIVE) 12/13/16 14:40 Urine Nitrite Negative (NEGATIVE) 12/13/16 14:40 Urine Bilirubin Negative (NEGATIVE) 12/13/16 14:40 Urine Urobilinogen Negative mg/dL (0.2-1.0) 12/13/16 14:40 Ur Leukocyte Esterase Negative (NEGATIVE) 12/13/16 14:40 Urine RBC 1 /hpf (0-3) 12/12/16 11:55 Urine WBC <1 /hpf (3-5) 12/12/16 11:55 RPR Titer Nonreactive (NONREACTIVE) 12/11/16 06:30 labs noted - Treatment Hospital Course: Detox Protocol Followed, Detoxed Safely, Responded well, Discharged Condition Good, Rehab Referral Accepted Patient has Accepted a Rehab Referral to: [facility] - Medication Discharge Medications: Ambulatory Orders Amlodipine/Atorvastatin [Amlodipine-Atorvast 1040 mg] 1 each PO DAILY 08/02/16 Atorvastatin Ca [Lipitor] 40 mg PO DAILY 08/02/16 Benazepril HCl 40 mg PO DAILY 08/02/16 Calcium Carbonate/Vitamin D3 [Calcium 250+D Tablet] 1 each PO DAILY 08/02/16 Hydrochlorothiazide [Hctz -] 25 mg PO DAILY 08/02/16 Methadone HCl [Dolophine HCl] 5 mg PO DAILY 08/02/16 - Diagnosis (1) Alcohol dependence with uncomplicated withdrawal Current Visit: Yes Status: Chronic (2) Hyperlipidemia Current Visit: Yes Status: Chronic Qualifiers: Hyperlipidemia type: pure hypercholesterolemia Qualified Code(s): E78.00 - Pure hypercholesterolemia, unspecified; E78.0 - Pure hypercholesterolemia (3) Hypertension Current Visit: Yes Status: Chronic Qualifiers: Hypertension type: essential hypertension Qualified Code(s): I10 - Essential (primary) hypertension (4) Opioid dependence on agonist therapy Current Visit: Yes Status: Chronic (5) Nicotine dependence Current Visit: No Status: Acute Qualifiers: Nicotine product type: cigarettes Substance use status: in withdrawal Qualified Code(s): F17.213 - Nicotine dependence, cigarettes, with withdrawal (6) Alcohol-induced anxiety disorder Current Visit: Yes Status: Acute - AMA Did Patient Leave Against Medical Advice: No
== END 2016-12-16 12:03 | disposition home or self-care (01) | DRG 773 ==
LOC: YASAS 15:00 → Y6N 20:13
PROVIDERS: ADMIT Internal Medicine; ATTEND Internal Medicine
PROC: HZ2ZZZZ Detoxification Services for Substance Abuse Treatment (ICD-10-PCS; principal; 2016-12-16)
DX: F11.20 Opioid dependence, uncomplicated (principal); F10.230 Alcohol dependence with withdrawal, uncomplicated; F17.213 Nicotine dependence, cigarettes, with withdrawal; F10.24 Alcohol dependence with alcohol-induced mood disorder; F32.9 Major depressive disorder, single episode, unspecified; I10 Essential (primary) hypertension; E78.00 Pure hypercholesterolemia, unspecified
CPT/HCPCS: 36415; 80053; 81003; 81015; 82140; 85027; 86593; 93005; 93010

== ENCOUNTER 2017-06-10 13:38 | Inpatient (IN) | payer OTHER ==
[2017-06-10 17:29] VITALS: BMI 29.0
--- NOTE | 2017-06-10 21:29 | HP ---
CIWA Score - CIWA Score Nausea/Vomitin-Mild Nausea/No Vomiting Muscle Tremors: 4-Moderate,w/Arms Extend Anxiety: 4-Mod. Anxious/Guarded Agitation: 4-Moderately Restless Paroxysmal Sweats: 1-Minimal Palms Moist Orientation: 3-Disoriented Date>2 days Tacttile Disturbances: 1-Very Mild Itch/Numbness Auditory Disturbances: 0-None Visual Disturbances: 0-None Headache: 0-None Present CIWA-Ar Total Score: 18 Admission ROS S - HPI Chief Complaint: withdrawal sx Allergies/Adverse Reactions: Allergies Allergy/AdvReac Type Severity Reaction Status Date / Time No Known Allergies Allergy Verified 06/10/17 19:54 History of Present Illness: 56 years old male with long history of alcohol nicotine dependence has hypertension right hip arthritis ambulate with cane positive ppd and depression is admitted to detox Exam Limitations: No Limitations - Ebola screening Have you traveled outside of the country in the last 21 days: No Have you had contact with anyone from an Ebola affected area: No Have you been sick,other than usual withdrawal symptoms: No Do you have a fever: No - Review of Systems Constitutional: Changes in sleep, Weight Stable EENT: reports: Blurred Vision Respiratory: reports: No Symptoms reported Cardiac: reports: No Symptoms Reported GI: reports: Nausea, Poor Fluid Intake, Abdominal cramping : reports: No Symptoms Reported Musculoskeletal: reports: Joint Pain (right hip), Muscle Pain (right leg), Muscle Weakness (right leg) Integumentary: reports: No Symptoms Reported Neuro: reports: Tremors Endocrine: reports: No Symptoms Reported Hematology: reports: No Symptoms Reported Psychiatric: reports: Judgement Intact, Anxious, Depressed Other Systems: Reviewed and Negative Patient History - Patient Medical History Hx Anemia: No Hx Asthma: No Hx Chronic Obstructive Pulmonary Disease (COPD): No Hx Cancer: No Hx Cardiac Disorders: No Hx Congestive Heart Failure: No Hx Hypertension: Yes Hx Hypercholesterolemia: No Hx Pacemaker: No HX Cerebrovascular Accident: No Hx Seizures: No Hx Dementia: No Hx Diabetes: No Hx Gastrointestinal Disorders: No Hx Liver Disease: No Hx Genitourinary Disorders: No Hx Sexually Transmitted Disorders: No Hx Renal Disease (ESRD): No Hx Thyroid Disease: No Hx Human Immunodeficiency Virus (HIV): No Hx Hepatitis C: No Hx Depression: Yes Hx Suicide Attempt: No Hx Bipolar Disorder: No Hx Schizophrenia: No - Patient Surgical History Past Surgical History: Yes Hx Neurologic Surgery: No Hx Cataract Extraction: Yes (right) Hx Cardiac Surgery: No Hx Lung Surgery: No Hx Breast Surgery: No Hx Breast Biopsy: No Hx Abdominal Surgery: Yes (right lateral abdomen) Hx Appendectomy: Yes (child 8 years old) Hx Cholecystectomy: Yes (child) Hx Genitourinary Surgery: No Hx Orthopedic Surgery: No Anesthesia Reaction: No - PPD History Previous Implant?: Yes Documented Results: Positive w/proof Implanted On Prior R Admission?: No PPD to be Administered?: No - Smoking Cessation Smoking history: Current every day smoker Have you smoked in the past 12 months: Yes Aproximately how many cigarettes per day: 40 Cigars Per Day: 0 Hx Chewing Tobacco Use: No Initiated information on smoking cessation: Yes 'Breaking Loose' booklet given: 06/10/17 - Substance & Tx. History Hx Alcohol Use: Yes Hx Substance Use: Yes Substance Use Type: Alcohol Hx Substance Use Treatment: Yes (11/2016 [facility] - Substances Abused Alcohol Route: Oral Frequency: Daily Amount used: liquor- 2 pints, Age of first use: 54 Date of Last Use: 06/09/17 Family Disease History - Family Disease History Family Disease History: Diabetes: Mother (), Heart Disease: Father ( ), Mother, CA: Mother, Other: Brother (no contact) Admission Physical Exam S - Vital Signs Vital Signs: Vital Signs - 24 hr 06/10/17 17:27 Temperature 99.3 F Pulse Rate 90 Respiratory 18 Rate Blood Pressure 118/92 - Physical General Appearance: Yes: Appropriately Dressed, Moderate Distress, Tremorous, Irritable, Sweating, Anxious HEENTM: Yes: Hearing grossly Normal, Normal ENT Inspection, Normocephalic, Normal Voice Respiratory: Yes: Chest Non-Tender, Lungs Clear, Normal Breath Sounds, No Respiratory Distress, No Accessory Muscle Use Neck: Yes: Supple, Trachea in good position Breast: Yes: Breasts Symetrical Cardiology: Yes: Regular Rhythm, S1, S2, Tachycardia Abdominal: Yes: Non Tender, Soft, Increased Bowel Sounds Genitourinary: Yes: Within Normal Limits Back: Yes: Normal Inspection Musculoskeletal: Yes: Gait Steady (cane), Joint swelling (ankles - last dose hctz "a while ago"), Muscle Pain Extremities: Yes: Swelling (ankles) Neurological: Yes: Alert, Normal Response, Depressed Affect Integumentary: Yes: Warm Lymphatic: Yes: Within Normal Limits - Diagnostic (1) Methadone maintenance therapy patient Current Visit: Yes Status: Chronic Comment: 12 mg verification pending (2) Nicotine dependence Current Visit: Yes Status: Acute Qualifiers: Nicotine product type: cigarettes Substance use status: in withdrawal Qualified Code(s): F17.213 - Nicotine dependence, cigarettes, with withdrawal Comment: nicotine replacement (3) Alcohol dependence with uncomplicated withdrawal Current Visit: Yes Status: Acute Comment: librium (4) Blindness of right eye Current Visit: No Status: Chronic (5) IONE (hard of hearing) Current Visit: No Status: Chronic Qualifiers: 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 Laterality: right Contralateral hearing status: unspecified Qualified Code(s): 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, unilateral, right ear, with unrestricted hearing on the contralateral side (6) Hyperlipidemia Current Visit: Yes Status: Chronic Qualifiers: Hyperlipidemia type: pure hypercholesterolemia Qualified Code(s): E78.00 - Pure hypercholesterolemia, unspecified Comment: lipitor 20 mg (7) Hypertension Current Visit: Yes Status: Chronic Qualifiers: Hypertension type: essential hypertension Qualified Code(s): I10 - Essential (primary) hypertension Comment: amlodopin 10 mg benazepril 40 mg hydrochlorothiazide 25 mg (8) Use of cane as ambulatory aid Current Visit: Yes Status: Chronic (9) Depression (emotion) Current Visit: Yes Status: Suspected Qualifiers: Depression Type: dysthymia Qualified Code(s): F34.1 - Dysthymic disorder Cleared for Admission S - Detox or Rehab [facility] Level of Care: Medically Managed Detox Regimen/Protocol: Librium [facility] Breath Alcohol Content Breath Alcohol Content: 0 Urine Drug Screen - Results Drug Screen Negative: No Urine Drug Screen Results: BZO-Benzodiazepines, MTD-Methadone
[2017-06-10] MEDS ORDERED: MAG HYDROX/AL HYDROX/SIMETH 30 ML UNIT-DOSE CUP PO PRN (21:46)
[2017-06-10] MEDS ORDERED: chlordiazePOXIDE HCL 25 MG CAPSULE PO PRN (21:46)
[2017-06-10] MEDS ORDERED: guaiFENesin/D-METHORPHAN HB 10 ML UNIT-DOSE CUPS PO PRN (21:46)
[2017-06-10] MEDS ORDERED: NICOTINE POLACRILEX 4 MG GUM BUC PRN (21:46)
[2017-06-10] MEDS ORDERED: IBUPROFEN 400 MG TABLET (FP) PO PRN (21:46)
[2017-06-10] MEDS ORDERED: MENTHOL/PHENOL 1 EACH UD MM PRN (21:46)
[2017-06-10] MEDS ORDERED: P-EPHED 60MG/TRIPROLIDI 2.5MG TABLET PO PRN (21:46)
[2017-06-10] MEDS ORDERED: LOPERAMIDE HCL 2 MG CAPSULE PO PRN (21:46)
[2017-06-10] MEDS ORDERED: ACETAMINOPHEN 325 MG TABLET (FP) PO PRN (21:46)
[2017-06-10] MEDS ORDERED: MAGNESIUM HYDROX 2400MG/30ML ORAL SUSPENSION 30 ML CUP PO PRN (21:46)
[2017-06-10] MEDS ORDERED: MAGNESIUM CITRATE 300 ML BOTTLE PO PRN (21:46)
[2017-06-10 23:04] LABS: URINE APPEARANCE SLCLOUDY; URINE BILIRUBIN NEGATIVE (NEGATIVE); URINE BLOOD NEGATIVE (NEGATIVE); URINE COLOR AMBER; URINE GLUCOSE (UA) NEGATIVE (NEGATIVE); URINE KETONE TRACE (NEGATIVE); URINE LEUK ESTERASE TRACE (NEGATIVE); URINE NITRITE NEGATIVE (NEGATIVE)
[2017-06-10 23:11] LABS: URINE PROTEIN 2+ (NEGATIVE)
[2017-06-10 23:13] LABS: EPI CELLS RARE /HPF (FEW); URINE HYALINE CAST 8 /lpf; URINE MUCUS RARE
[2017-06-10] MEDS: chlordiazePOXIDE HCL 25 MG CAPSULE PO SCH (23:51)
[2017-06-10] MEDS: THIAMINE HCL 100 MG TABLET (FP) PO SCH (23:51)
[2017-06-10] MEDS: AMOXICILLIN 500 MG CAPSULE (FP) PO SCH (23:51)
[2017-06-11] MEDS: chlordiazePOXIDE HCL 25 MG CAPSULE PO SCH ×4 (05:33→22:20)
[2017-06-11] MEDS: METHADONE HCL 10 MG TABLET PO SCH (08:03)
[2017-06-11 10:05] LABS: HEMATOCRIT 42.2 % (35.4-49); HEMOGLOBIN 13.7 GM/dL (11.7-16.9); MCH 33.5 pg (25.7-33.7); MCHC 32.5 g/dl (32.0-35.9); MEAN CELL VOLUME 103.2 fl (80-96); PLATELET COUNT 179 K/MM3 (134-434); RBC 4.08 M/mm3 (4.00-5.60); RDW 14.5 % (11.9-15.9); WHITE BLOOD COUNT 8.8 K/mm3 (4.0-10.0)
[2017-06-11] MEDS ORDERED: diphenhydrAMINE HCL 50 MG CAPSULE PO PRN (10:06)
[2017-06-11] MEDS: HYDROCHLOROTHIAZIDE 25 MG TABLET (FP) PO SCH (10:14)
[2017-06-11] MEDS: amLODIPine BESYLATE 10 MG TABLET (FP) PO SCH (10:14)
[2017-06-11] MEDS: AMOXICILLIN 500 MG CAPSULE (FP) PO SCH ×2 (10:14→22:20)
[2017-06-11] MEDS: PRENATAL VITAMINS W/ FOLIC ACID TABLET (FP) PO SCH (10:14)
[2017-06-11] MEDS: NICOTINE 21 MG/24 HOURS TOPICAL PATCH TD SCH (10:15)
[2017-06-11 11:33] LABS: CHLORIDE 99 mmol/L (98-107); POTASSIUM 3.6 mmol/L (3.5-5.1); SODIUM 141 mmol/L (136-145)
[2017-06-11 11:45] LABS: ALBUMIN 3.9 g/dl (3.4-5.0); ALK PHOS 135 U/L (45-117); ANION GAP 11 (8-16); BILIRUBIN,TOTAL 0.8 mg/dL (0.2-1.0); BLOOD UREA NITROGEN 38 mg/dL (7-18); CALCIUM 9.1 mg/dL (8.5-10.1); CO2 31 mmol/L (21-32); CREATININE 1.3 mg/dL (0.7-1.3); GLUCOSE,RANDOM 93 mg/dL (74-106); SGOT/AST 52 U/L (15-37); SGPT/ALT 51 U/L (12-78); TOT PROT 7.8 g/dl (6.4-8.2)
[2017-06-11] MEDS: CALCIUM 250MG/VIT-D 125 UNITS 1 COMBO TABLET PO SCH (12:51)
--- NOTE | 2017-06-11 13:35 | PN ---
[facility] CIWA - CIWA Score Nausea/Vomitin-No Nausea/No Vomiting Muscle Tremors: 4-Moderate,w/Arms Extend Anxiety: 3 Agitation: 2 Paroxysmal Sweats: 3 Orientation: 0-Oriented Tacttile Disturbances: 2-Mild Itch/Numbness/Burn Auditory Disturbances: 0-None Visual Disturbances: 3-Moderate Sensitivity Headache: 0-None Present CIWA-Ar Total Score: 17 S Progress Note (SOAP) Subjective: Tremors, Sweating, Interrupted Sleep, Anxious. Objective: PT. A & O X 3. NO ACUTE DISTRESS. 06/11/17 13:31 Vital Signs Temperature 98.1 F 06/11/17 13:21 Pulse Rate 73 06/11/17 13:21 Respiratory Rate 16 06/11/17 13:21 Blood Pressure 134/88 06/11/17 13:21 O2 Sat by Pulse Oximetry (%) Laboratory Tests 06/10/17 06/11/17 06/11/17 22:40 07:10 07:10 WBC 8.8 RBC 4.08 Hgb 13.7 Hct 42.2 MCV 103.2 H MCH 33.5 MCHC 32.5 RDW 14.5 Plt Count 179 D MPV 10.0 Sodium 141 Potassium 3.6 Chloride 99 Carbon Dioxide 31 Anion Gap 11 BUN 38 H D Creatinine 1.3 D Creat Clearance w eGFR 56.90 Random Glucose 93 Calcium 9.1 Total Bilirubin 0.8 AST 52 H D ALT 51 D Alkaline Phosphatase 135 H D Total Protein 7.8 Albumin 3.9 Urine Color Lorie Urine Appearance Slcloudy Urine pH 5.0 Ur Specific [place] 1.024 Urine Protein 2+ H Urine Glucose (UA) Negative Urine Ketones Trace H Urine Blood Negative Urine Nitrite Negative Urine Bilirubin Negative Urine Urobilinogen 2.0 Ur Leukocyte Esterase Trace Urine WBC (Auto) 2 Urine RBC (Auto) 5 Ur Epithelial Cells Rare Hyaline Casts 8 Urine Mucus Rare RPR Titer 06/11/17 07:10 WBC RBC Hgb Hct MCV MCH MCHC RDW Plt Count MPV Sodium Potassium Chloride Carbon Dioxide Anion Gap BUN Creatinine Creat Clearance w eGFR Random Glucose Calcium Total Bilirubin AST ALT Alkaline Phosphatase Total Protein Albumin Urine Color Urine Appearance Urine pH Ur Specific [place] Urine Protein Urine Glucose (UA) Urine Ketones Urine Blood Urine Nitrite Urine Bilirubin Urine Urobilinogen Ur Leukocyte Esterase Urine WBC (Auto) Urine RBC (Auto) Ur Epithelial Cells Hyaline Casts Urine Mucus RPR Titer Nonreactive LABS NOTED. Assessment: 06/11/17 13:31 WITHDRAWAL SYMPTOMS. Plan: CONTINUE [place] [facility] [place] FOR ABNORMAL ADMISSION RENAL LAB VALUES. D/C IBUPROFEN AND MAGNESIUM-CONTAINING MEDS. INCREASE DAILY PO FLUID INTAKE.
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
[2017-06-11] MEDS: THIAMINE HCL 100 MG TABLET (FP) PO SCH (22:20)
[2017-06-11] MEDS: ATORVASTATIN CA 40 MG TABLET (FP) PO SCH (22:29)
[2017-06-12] MEDS: METHADONE HCL 10 MG TABLET PO SCH (05:08)
[2017-06-12] MEDS: chlordiazePOXIDE HCL 25 MG CAPSULE PO SCH ×3 (05:08→17:53)
--- NOTE | 2017-06-12 07:55 | EKG ---
Test Reason : Blood Pressure : / mmHG Vent. Rate : 064 BPM Atrial Rate : 064 BPM P-R Int : 158 ms QRS Dur : 108 ms QT Int : 424 ms P-R-T Axes : 040 011 081 degrees QTc Int : 437 ms NORMAL SINUS RHYTHM NONSPECIFIC T WAVE ABNORMALITY ABNORMAL ECG WHEN COMPARED WITH ECG OF 11-JUN-2017 07:52, NO SIGNIFICANT CHANGE WAS FOUND Confirmed by KARINA SEO MD ([id number]) on 06/12/2017 7:55:11 AM Referred By: Confirmed By:KARINA SEO MD
--- NOTE | 2017-06-12 07:55 | EKG ---
Test Reason : Blood Pressure : / mmHG Vent. Rate : 067 BPM Atrial Rate : 067 BPM P-R Int : 148 ms QRS Dur : 104 ms QT Int : 420 ms P-R-T Axes : 046 025 080 degrees QTc Int : 443 ms NORMAL SINUS RHYTHM POSSIBLE LEFT ATRIAL ENLARGEMENT NONSPECIFIC T WAVE ABNORMALITY ABNORMAL ECG WHEN COMPARED WITH ECG OF 11-JUN-2017 00:18, NO SIGNIFICANT CHANGE WAS FOUND Confirmed by RAYRAY ROSENBERG, KARINA ([id number]) on 06/12/2017 7:55:06 AM Referred By: Confirmed By:KARINA SEO MD
[2017-06-12] MEDS: CALCIUM 250MG/VIT-D 125 UNITS 1 COMBO TABLET PO SCH (10:09)
[2017-06-12] MEDS: amLODIPine BESYLATE 10 MG TABLET (FP) PO SCH (10:10)
[2017-06-12] MEDS: AMOXICILLIN 500 MG CAPSULE (FP) PO SCH ×2 (10:10→22:20)
[2017-06-12] MEDS: HYDROCHLOROTHIAZIDE 25 MG TABLET (FP) PO SCH (10:10)
[2017-06-12] MEDS: PRENATAL VITAMINS W/ FOLIC ACID TABLET (FP) PO SCH (10:11)
[2017-06-12] MEDS: NICOTINE 21 MG/24 HOURS TOPICAL PATCH TD SCH (10:12)
--- NOTE | 2017-06-12 13:15 | PN ---
[facility] CIWA - CIWA Score Nausea/Vomitin-No Nausea/No Vomiting Muscle Tremors: 4-Moderate,w/Arms Extend Anxiety: 4-Mod. Anxious/Guarded Agitation: 0-Normal Activity Paroxysmal Sweats: 3 Orientation: 0-Oriented Tacttile Disturbances: 2-Mild Itch/Numbness/Burn Auditory Disturbances: 1-Very Mild Visual Disturbances: 2-Mild Sensitivity Headache: 0-None Present CIWA-Ar Total Score: 16 S Progress Note (SOAP) Subjective: Tremors, Fatigue, Anxious. Objective: PT. A & O X 3, OBSERVED AMBULATING ON UNIT WITH ASSISTANCE OF A CANE. NO ACUTE DISTRESS. 06/12/17 13:13 Vital Signs Temperature 97.9 F 06/12/17 13:05 Pulse Rate 67 06/12/17 13:05 Respiratory Rate 19 06/12/17 13:05 Blood Pressure 138/88 06/12/17 13:05 O2 Sat by Pulse Oximetry (%) Laboratory Tests 06/10/17 06/11/17 06/11/17 22:40 07:10 07:10 WBC 8.8 RBC 4.08 Hgb 13.7 Hct 42.2 MCV 103.2 H MCH 33.5 MCHC 32.5 RDW 14.5 Plt Count 179 D MPV 10.0 Sodium 141 Potassium 3.6 Chloride 99 Carbon Dioxide 31 Anion Gap 11 BUN 38 H D Creatinine 1.3 D Creat Clearance w eGFR 56.90 Random Glucose 93 Calcium 9.1 Total Bilirubin 0.8 AST 52 H D ALT 51 D Alkaline Phosphatase 135 H D Total Protein 7.8 Albumin 3.9 Urine Color Lorie Urine Appearance Slcloudy Urine pH 5.0 Ur Specific [place] 1.024 Urine Protein 2+ H Urine Glucose (UA) Negative Urine Ketones Trace H Urine Blood Negative Urine Nitrite Negative Urine Bilirubin Negative Urine Urobilinogen 2.0 Ur Leukocyte Esterase Trace Urine WBC (Auto) 2 Urine RBC (Auto) 5 Ur Epithelial Cells Rare Hyaline Casts 8 Urine Mucus Rare RPR Titer 06/11/17 07:10 WBC RBC Hgb Hct MCV MCH MCHC RDW Plt Count MPV Sodium Potassium Chloride Carbon Dioxide Anion Gap BUN Creatinine Creat Clearance w eGFR Random Glucose Calcium Total Bilirubin AST ALT Alkaline Phosphatase Total Protein Albumin Urine Color Urine Appearance Urine pH Ur Specific [place] Urine Protein Urine Glucose (UA) Urine Ketones Urine Blood Urine Nitrite Urine Bilirubin Urine Urobilinogen Ur Leukocyte Esterase Urine WBC (Auto) Urine RBC (Auto) Ur Epithelial Cells Hyaline Casts Urine Mucus RPR Titer Nonreactive LABS NOTED. Assessment: 06/12/17 13:14 WITHDRAWAL SYMPTOMS. Plan: CONTINUE DETOX. INCREASE DAILY PO FLUID INTAKE.
[2017-06-12 13:37] LABS: ANION GAP 7 (8-16); BLOOD UREA NITROGEN 24 mg/dL (7-18); CALCIUM 8.7 mg/dL (8.5-10.1); CHLORIDE 99 mmol/L (98-107); CO2 32 mmol/L (21-32); GLUCOSE,RANDOM 99 mg/dL (74-106); POTASSIUM 3.7 mmol/L (3.5-5.1); SODIUM 138 mmol/L (136-145)
[2017-06-12] MEDS: THIAMINE HCL 100 MG TABLET (FP) PO SCH (22:19)
[2017-06-12] MEDS: chlordiazePOXIDE 5 MG CAPSULE PO SCH (22:20)
[2017-06-12] MEDS: ATORVASTATIN CA 40 MG TABLET (FP) PO SCH (22:20)
[2017-06-12] MEDS: LACTULOSE 20 GM/30 ML UDC (FOR ORAL USE ONLY) PO SCH (22:20)
[2017-06-13] MEDS: METHADONE HCL 10 MG TABLET PO SCH (05:10)
[2017-06-13] MEDS: chlordiazePOXIDE 5 MG CAPSULE PO SCH ×3 (05:10→17:44)
[2017-06-13] MEDS: LACTULOSE 20 GM/30 ML UDC (FOR ORAL USE ONLY) PO SCH ×3 (05:10→22:25)
[2017-06-13] MEDS ORDERED: LIDOCAINE VISCOUS 2% ORAL/TOP 20 ML UNIT-DOSE CUP MM PRN (09:28)
[2017-06-13] MEDS: CALCIUM 250MG/VIT-D 125 UNITS 1 COMBO TABLET PO SCH (10:12)
[2017-06-13] MEDS: amLODIPine BESYLATE 10 MG TABLET (FP) PO SCH (10:12)
[2017-06-13] MEDS: HYDROCHLOROTHIAZIDE 25 MG TABLET (FP) PO SCH (10:12)
[2017-06-13] MEDS: AMOXICILLIN 500 MG CAPSULE (FP) PO SCH ×2 (10:12→22:24)
[2017-06-13] MEDS: NICOTINE 21 MG/24 HOURS TOPICAL PATCH TD SCH (10:13)
[2017-06-13] MEDS: PRENATAL VITAMINS W/ FOLIC ACID TABLET (FP) PO SCH (10:14)
--- NOTE | 2017-06-13 12:36 | PN ---
[facility] Progress Note (SOAP) Subjective: Anxious, Stomach Cramping, Body Aches. Objective: PT. A & O X 3, OBSERVED AMBULATING ON UNIT. NO ACUTE DISTRESS. PT. DENIES CHEST PAIN. 06/13/17 12:35 Vital Signs Temperature 103 F H 06/13/17 10:12 Pulse Rate 89 06/13/17 10:12 Respiratory Rate 18 06/13/17 10:12 Blood Pressure 154/96 06/13/17 10:12 O2 Sat by Pulse Oximetry (%) Laboratory Tests 06/10/17 06/11/17 06/11/17 22:40 07:10 07:10 WBC 8.8 RBC 4.08 Hgb 13.7 Hct 42.2 MCV 103.2 H MCH 33.5 MCHC 32.5 RDW 14.5 Plt Count 179 D MPV 10.0 Sodium 141 Potassium 3.6 Chloride 99 Carbon Dioxide 31 Anion Gap 11 BUN 38 H D Creatinine 1.3 D Creat Clearance w eGFR 56.90 Random Glucose 93 Calcium 9.1 Total Bilirubin 0.8 AST 52 H D ALT 51 D Alkaline Phosphatase 135 H D Ammonia Total Protein 7.8 Albumin 3.9 Urine Color Lorie Urine Appearance Slcloudy Urine pH 5.0 Ur Specific [employer] 1.024 Urine Protein 2+ H Urine Glucose (UA) Negative Urine Ketones Trace H Urine Blood Negative Urine Nitrite Negative Urine Bilirubin Negative Urine Urobilinogen 2.0 Ur Leukocyte Esterase Trace Urine WBC (Auto) 2 Urine RBC (Auto) 5 Ur Epithelial Cells Rare Hyaline Casts 8 Urine Mucus Rare RPR Titer 06/11/17 06/12/17 06/12/17 07:10 11:05 11:05 WBC RBC Hgb Hct MCV MCH MCHC RDW Plt Count MPV Sodium 138 Potassium 3.7 Chloride 99 Carbon Dioxide 32 Anion Gap 7 L BUN 24 H D Creatinine 1.0 D Creat Clearance w eGFR Random Glucose 99 Calcium 8.7 Total Bilirubin AST ALT Alkaline Phosphatase Ammonia 46.30 H Total Protein Albumin Urine Color Urine Appearance Urine pH Ur Specific [employer] Urine Protein Urine Glucose (UA) Urine Ketones Urine Blood Urine Nitrite Urine Bilirubin Urine Urobilinogen Ur Leukocyte Esterase Urine WBC (Auto) Urine RBC (Auto) Ur Epithelial Cells Hyaline Casts Urine Mucus RPR Titer Nonreactive LABS NOTED. Assessment: 06/13/17 12:36 WITHDRAWAL SYMPTOMS. HYPERAMMONEMIA. 06/13/17 12:36 Plan: CONTINUE DETOX.
[2017-06-13] MEDS: ATORVASTATIN CA 40 MG TABLET (FP) PO SCH (22:24)
[2017-06-13] MEDS: chlordiazePOXIDE HCL 10 MG CAPSULE PO SCH (22:24)
[2017-06-13] MEDS: THIAMINE HCL 100 MG TABLET (FP) PO SCH (22:35)
[2017-06-14] MEDS: chlordiazePOXIDE HCL 10 MG CAPSULE PO SCH ×2 (05:49→10:35)
[2017-06-14] MEDS: METHADONE HCL 10 MG TABLET PO SCH (05:49)
[2017-06-14] MEDS: LACTULOSE 20 GM/30 ML UDC (FOR ORAL USE ONLY) PO SCH (05:50)
[2017-06-14 06:10] VITALS: BP 129/76; PULSE 61; TEMP 96.9
[2017-06-14] MEDS: CALCIUM 250MG/VIT-D 125 UNITS 1 COMBO TABLET PO SCH (09:33)
[2017-06-14] MEDS: PRENATAL VITAMINS W/ FOLIC ACID TABLET (FP) PO SCH (09:33)
[2017-06-14] MEDS: HYDROCHLOROTHIAZIDE 25 MG TABLET (FP) PO SCH (09:33)
[2017-06-14] MEDS: amLODIPine BESYLATE 10 MG TABLET (FP) PO SCH (09:33)
[2017-06-14] MEDS: NICOTINE 21 MG/24 HOURS TOPICAL PATCH TD SCH (09:34)
[2017-06-14 12:08] LABS: ALBUMIN 3.6 g/dl (3.4-5.0); ALK PHOS 146 U/L (45-117); ANION GAP 8 (8-16); BILIRUBIN,TOTAL 0.3 mg/dL (0.2-1.0); BLOOD UREA NITROGEN 18 mg/dL (7-18); CALCIUM 8.9 mg/dL (8.5-10.1); CHLORIDE 100 mmol/L (98-107); CO2 32 mmol/L (21-32); CREATININE 0.8 mg/dL (0.7-1.3); GLUCOSE,RANDOM 112 mg/dL (74-106); POTASSIUM 3.9 mmol/L (3.5-5.1); SGOT/AST 38 U/L (15-37); SGPT/ALT 61 U/L (12-78); SODIUM 140 mmol/L (136-145); TOT PROT 7.2 g/dl (6.4-8.2)
--- NOTE | 2017-06-14 16:05 | DS ---
[facility] Detox Discharge Summary Admission Date: 06/10/17 Discharge Date: 06/14/17 - History Present History: Alcohol Dependence, Opioid Dependence, MMTP Additional Comments: PATIENT GOING TO [facility] ([place], [place] FOR AFTERCARE. PATIENT DECLINED OFFER OF DISCHARGE PRESCRIPTIONS, STATING THAT HE CURRENTLY HAS ADEQUATE SUPPLIES OF ALL HOME MEDICATIONS. PATIENT WAS DISCHARGED FROM DETOX UNIT IN STABLE MEDICAL CONDITION. Pertinent Past History: HTN, MMTP, Blindness of Right Eye, Hard of Hearing, History of Positive PPD, Hyperlipidemia, Use of Can as Ambulatory Aid, Nicotine Dependence, Depression. - Physical Exam Results Vital Signs: Vital Signs Temperature 96.9 F L 06/14/17 06:09 Pulse Rate 61 06/14/17 06:09 Respiratory Rate 18 06/14/17 06:09 Blood Pressure 129/76 06/14/17 06:09 O2 Sat by Pulse Oximetry (%) Pertinent Admission Physical Exam Findings: WITHDRAWAL SYMPTOMS. Laboratory Tests 06/10/17 06/11/17 06/11/17 22:40 07:10 07:10 WBC 8.8 RBC 4.08 Hgb 13.7 Hct 42.2 MCV 103.2 H MCH 33.5 MCHC 32.5 RDW 14.5 Plt Count 179 D MPV 10.0 Sodium 141 Potassium 3.6 Chloride 99 Carbon Dioxide 31 Anion Gap 11 BUN 38 H D Creatinine 1.3 D Creat Clearance w eGFR 56.90 Random Glucose 93 Calcium 9.1 Total Bilirubin 0.8 AST 52 H D ALT 51 D Alkaline Phosphatase 135 H D Ammonia Total Protein 7.8 Albumin 3.9 Urine Color Lorie Urine Appearance Slcloudy Urine pH 5.0 Ur Specific [place] 1.024 Urine Protein 2+ H Urine Glucose (UA) Negative Urine Ketones Trace H Urine Blood Negative Urine Nitrite Negative Urine Bilirubin Negative Urine Urobilinogen 2.0 Ur Leukocyte Esterase Trace Urine WBC (Auto) 2 Urine RBC (Auto) 5 Ur Epithelial Cells Rare Hyaline Casts 8 Urine Mucus Rare RPR Titer 06/11/17 06/12/17 06/12/17 07:10 11:05 11:05 WBC RBC Hgb Hct MCV MCH MCHC RDW Plt Count MPV Sodium 138 Potassium 3.7 Chloride 99 Carbon Dioxide 32 Anion Gap 7 L BUN 24 H D Creatinine 1.0 D Creat Clearance w eGFR Random Glucose 99 Calcium 8.7 Total Bilirubin AST ALT Alkaline Phosphatase [place]ia 46.30 H Total Protein Albumin Urine Color Urine Appearance Urine pH Ur Specific [place] Urine Protein Urine Glucose (UA) Urine Ketones Urine Blood Urine Nitrite Urine Bilirubin Urine Urobilinogen Ur Leukocyte Esterase Urine WBC (Auto) Urine RBC (Auto) Ur Epithelial Cells Hyaline Casts Urine Mucus RPR Titer Nonreactive 06/14/17 06:45 WBC RBC Hgb Hct MCV MCH MCHC RDW Plt Count MPV Sodium 140 Potassium 3.9 Chloride 100 Carbon Dioxide 32 Anion Gap 8 BUN 18 D Creatinine 0.8 Creat Clearance w eGFR > 60 Random Glucose 112 H Calcium 8.9 Total Bilirubin 0.3 D AST 38 H D ALT 61 Alkaline Phosphatase 146 H Ammonia Total Protein 7.2 Albumin 3.6 Urine Color Urine Appearance Urine pH Ur Specific [place] Urine Protein Urine Glucose (UA) Urine Ketones Urine Blood Urine Nitrite Urine Bilirubin Urine Urobilinogen Ur Leukocyte Esterase Urine WBC (Auto) Urine RBC (Auto) Ur Epithelial Cells Hyaline Casts Urine Mucus RPR Titer LABS NOTED. - Treatment Hospital Course: Detox Protocol Followed, Detoxed Safely, Responded well, Discharged Condition Good, Rehab Referral Accepted Patient has Accepted a Rehab Referral to: [facility] ([place], [place] - Medication Discharge Medications: Ambulatory Orders Amlodipine/Atorvastatin [Amlodipine-Atorvast 10-40 mg] 10 each PO DAILY Atorvastatin Ca [Lipitor] 20 mg PO DAILY 08/02/16 Benazepril HCl 40 mg PO DAILY 08/02/16 Calcium Carbonate/Vitamin D3 [Calcium 250+D Tablet] 1 each PO DAILY 08/02/16 Hydrochlorothiazide [Hctz -] 25 mg PO DAILY 08/02/16 - Diagnosis (1) Alcohol dependence with uncomplicated withdrawal Status: Acute (2) Nicotine dependence Status: Acute Qualifiers: Nicotine product type: cigarettes Substance use status: in withdrawal Qualified Code(s): F17.213 - Nicotine dependence, cigarettes, with withdrawal (3) Hyperlipidemia Status: Chronic Qualifiers: Hyperlipidemia type: pure hypercholesterolemia Qualified Code(s): E78.00 - Pure hypercholesterolemia, unspecified (4) Hypertension Status: Chronic Qualifiers: Hypertension type: essential hypertension Qualified Code(s): I10 - Essential (primary) hypertension (5) Methadone maintenance therapy patient Status: Chronic (6) Blindness of right eye Status: Chronic (7) [place] (hard of hearing) Status: Chronic Qualifiers: 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 Laterality: right Contralateral hearing status: unspecified Qualified Code(s): 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
== END 2017-06-14 09:58 | disposition home or self-care (01) | DRG 773 ==
LOC: YASAS 13:38 → Y3N 19:08
PROVIDERS: ADMIT Internal Medicine; ATTEND Internal Medicine
PROC: HZ2ZZZZ Detoxification Services for Substance Abuse Treatment (ICD-10-PCS; principal; 2017-06-10)
DX: F11.20 Opioid dependence, uncomplicated (principal); F10.230 Alcohol dependence with withdrawal, uncomplicated; F17.210 Nicotine dependence, cigarettes, uncomplicated; F34.1 Dysthymic disorder; I10 Essential (primary) hypertension; E78.00 Pure hypercholesterolemia, unspecified; H90.71 Mixed conductive and sensorineural hearing loss, unilateral, right ear, with unrestricted hearing on the contralateral side; R26.2 Difficulty in walking, not elsewhere classified; Z99.89 Dependence on other enabling machines and devices
CPT/HCPCS: 36415; 80048; 80053; 81003; 81015; 82140; 85027; 86593; 93005; 93010